=== PATIENT | male | born 1950 | race African-American/Black ===

== ENCOUNTER 2021-08-11 17:27 | Emergency (ER) | payer MEDICARE ==
[2021-08-11 20:04] LABS: HEMOGLOBIN 10.7 gm/dl (14.0-17.5); RED BLOOD COUNT 3.57 M/UL (4.20-5.50); WHITE BLOOD COUNT 6.4 K/UL (4.5-11.0)
== END 2021-08-12 05:25 | disposition short-term general hospital (02) ==
LOC: ER1 17:27
PROVIDERS: Physician Assistant Medical
DX: N17.9 Acute kidney failure, unspecified (principal); M25.552 Pain in left hip; D64.9 Anemia, unspecified; E11.9 Type 2 diabetes mellitus without complications; N50.819 Testicular pain, unspecified; Z20.822 Contact with and (suspected) exposure to COVID-19
CPT/HCPCS: 80053; 81001; 85025; 85652; 86140; 96361; 96374; 96375; 96376; 99285; J2270; J2405; U0002